=== PATIENT | male | born 1960 | race Caucasian/White ===

== ENCOUNTER 2017-07-25 16:04 | Observation (INO) | payer MEDICARE, OTHER ==
[2017-07-25 16:32] LABS: #Basophils 0.1 thou/uL (0.0-0.2); #Eosinphils 0.2 thou/uL (0.0-0.7); #Lymphocytes 2.2 thou/uL (1.20-3.40); #Monocytes 0.6 thou/uL (0.11-0.59); #Neutrophils 5.6 thou/uL (1.40-6.50); %Basophils 0.9 % (0.0-1.0); %Eosinophils 2.7 % (0.0-10.0); %Lymphocytes 25.4 % (21.0-51.0); %Monocytes 6.5 % (0.0-10.0); %Neutrophils 64.5 % (42.0-75.0); Hemoglobin 14.9 g/dL (14.0-18.0); Mean Corpuscular HGB CONC 34.2 g/dL (32.0-36.0); Mean Corpuscular Hemoglobin 30.2 pg (27.0-31.0); Mean Corpuscular Volume 88.2 fl (80.0-94.0); Platelet Count 324 thou/uL (130-400); RBC Distribution Width 12.1 % (11.5-14.5); Red Blood Cell (RBC) Count 4.92 mill/uL (4.70-6.10); White Blood Cell (WBC) Count 8.7 thou/uL (4.8-10.8)
[2017-07-25] MEDS ORDERED: Nitroglycerin 0.4 MG TAB (25 Tab Bottle) ONE (16:35)
[2017-07-25] MEDS ORDERED: Nitroglycerin 2% Ointment 1 INCH/1 GM Packet ONE (16:35)
[2017-07-25 16:37] LABS: INR-International Normal Ratio 1.1; PTT 30.9 SEC (22.9-36.1)
[2017-07-25 16:53] LABS: ALT (SGPT) 12 U/L (8-55); AST (SGOT) 17 U/L (5-34); Albumin 4.1 g/dL (3.5-5.0); Alkaline Phosphatase 143 U/L (40-150); Anion Gap 14 mmol/L (10-20); BUN (Urea Nitrogen) 15 mg/dL (8.4-25.7); Bilirubin, Total 0.6 mg/dL (0.2-1.2); CK (CPK) 69 U/L (30-200); Calc. Creatinine Clearance 0 mL/min (70-130); Calcium 9.5 mg/dL (7.8-10.44); Carbon Dioxide 27 mmol/L (22-29); Chloride 102 mmol/L (98-107); Estimated GFR-MDRD 55; Globulin 3.8 g/dL (2.4-3.5); Glucose 145 mg/dL (70-105); Potassium 3.5 mmol/L (3.5-5.1); Protein, Total 7.9 g/dL (6.0-8.3); Sodium 139 mmol/L (136-145)
[2017-07-25 16:55] LABS: CKMB 1.7 ng/mL (0-6.6); Troponin I 0.105 ng/mL (< 0.028)
--- NOTE | 2017-07-25 17:14 | CT ---
CT BRAIN WITHOUT CONTRAST: History: Slurred speech. Comparison: 2012 FINDINGS: There are extensive periventricular and deep white matter microangiopathic change, which has progress ed since the comparison examination. Innumerable lacunar infarcts. No acute hemorrhage. No midline shift of mass effect. Mastoids are clear. IMPRESSION: Extensive white matter changes, worsening from the comparison examination. Given the marked progressi on, an underlying small volume of acute component cannot be entirely excluded. MRI recommended if cli nically warranted. POS: [facility]
--- NOTE | 2017-07-25 18:39 | RAD ---
CHEST ONE VIEW: History: Slurred speech, chest pain. Comparison: 07-30-16 FINDINGS: Heart size is enlarged. Old left sided rib fractures. Old left clavicular fracture. No acute focal ai rspace consolidation, pneumothorax, or effusion. IMPRESSION: 1. Cardiomegaly. 2. Old left sided rib fractures. POS: [facility]
[2017-07-25] MEDS ORDERED: hydrALAZINE 20 MG/ML VIAL ONE (18:52)
[2017-07-25] MEDS ORDERED: Guaifenesin DM 100-10/5 ML UDCUP PO PRN (19:07)
[2017-07-25] MEDS ORDERED: Lisinopril/Hydrochlorothiazide 20 mg/12.5 mg Tablet PO SCH (19:30)
[2017-07-25 20:16] LABS: HBCM Index 0.06 S/CO (0-0.79); HBSAg Index 0.16 S/CO (0-0.99); HIV (1/2) Antibody/Antigen Non-Reactive (NonReactive); Hep A IgM AB Non-Reactive (NonReactive); Hep A IgM S/CO 0.11 S/CO (0-0.79); Hep B Surf Ag Non-Reactive S/CO (NonReactive); Hep C IgG Ab Non-Reactive (NonReactive); Hep C Index 0.17 S/CO (0-0.79); Hepatitis B Core IGM Abs Non-Reactive (NonReactive)
[2017-07-25 20:31] LABS: Bilirubin Negative (Negative); Blood, Urine Negative (Negative); Clarity CLEAR (Clear); Glucose, Urine (Dipstick) Negative (Negative); Leukocyte Negative (Negative); Nitrite Negative (Negative); Protein, Urine (Dipstick) 30 mg/dL (Neg-Trace); pH, Urine 6.5 (5.0-9.0)
[2017-07-25 20:33] LABS: Bacteria/HPF None Seen HPF (None Seen); Pathc Cast-AUWi Flag 1.74 (0-2.49); RBC/HPF 0-3 HPF (0-3); Squamous Epithelial 0-3 HPF (0-3); WBC/HPF 0-3 HPF (0-3)
[2017-07-25] MEDS: Famotidine 20 MG TAB PO SCH (20:36)
[2017-07-25] MEDS: Acetaminophen 325 MG TAB PO PRN (20:36)
[2017-07-25 20:46] LABS: Hyaline Casts/LPF 4-6 HYALINE CAST LPF (0-3 Hyaline)
[2017-07-25] MEDS ORDERED: Atorvastatin Calcium 20 MG TAB PO SCH (21:00)
--- NOTE | 2017-07-25 23:45 | HP ---
REASON FOR ADMISSION: TIA/CVA. HISTORY OF PRESENT ILLNESS: Patient gives history of having trouble speaking for last 2 months or so. He has trouble articulating, but here in the ER, patient is fluently speaking. He states that this is not his voice. He also feels like he has heaviness in his chest off and on, but none at present. No complaints of shortness of breath, palpitation, PND, or orthopnea. His friend saw him this afternoon and told him to come to the emergency room. No prior history of stroke. He has had a CT brain done, which could not r/o stroke. Patient states he has history of heart failure and is not on any medications now for last one year. Patient admits to using crack cocaine on Wednesday. He also uses marijuana regularly and drinks two beers. PAST MEDICAL AND SURGICAL HISTORY: History of CHF, likely diastolic, hypertension, sleep apnea, gout, tonsillectomy. Stress test done in 12/2013 showed no infarct or ischemia, EF was 58% on the stress test. Echo done in 2013 in December showed EF of 50%-55%. CURRENT MEDICATIONS: None. ALLERGIES: No known drug allergies. PERSONAL HISTORY: He uses cocaine, marijuana, and drinks 2 beers per day. Patient is on disability for heart failure. FAMILY HISTORY: Multiple family members have GI malignancy. Heart disease also runs in the family. CODE STATUS: FULL. Power of energy attorney is his daughter. REVIEW OF SYSTEMS: The following complete review of systems was negative, unless otherwise mentioned in the HPI or below: Constitutional: Weight loss or gain, ability to conduct usual activities. Skin: Rash, itching. Eyes: Double vision, pain. ENT/Mouth: Nose bleeding, neck stiffness, pain, tenderness. Cardiovascular: Palpitations, dyspnea on exertion, orthopnea. Respiratory: Shortness of breath, wheezing, cough, hemoptysis, fever, or night sweats. Gastrointestinal: Poor appetite, abdominal pain, heartburn, nausea, vomiting, constipation, or diarrhea. Genitourinary: Urgency, frequency, dysuria, nocturia. Musculoskeletal: Pain, swelling. Neurologic/Psychiatric: Anxiety, depression. Allergy/Immunologic: Skin rash, bleeding tendency. PHYSICAL EXAMINATION: GENERAL: Patient is a 57-year-old male who is currently not in any acute distress. VITAL SIGNS: Blood pressure on arrival was 219/138, pulse 93 per minute, respiratory rate 20 per minute, temperature 99.9 degrees Fahrenheit, saturating 93% on room air. NECK: Supple. No elevated JVD. HEENT: Eyes, extraocular muscles intact. Pupils reacting to light. Oral cavity mucous membranes are moist. No exudates or congestion. CARDIOVASCULAR SYSTEM: S1, S2 heard. Regular rhythm. RESPIRATORY SYSTEM: Air entry 1+ bilateral. Scattered rhonchi plus no rales or wheezes. ABDOMEN: Soft. Bowel sounds heard. No tenderness, rigidity, or guarding. EXTREMITIES: 1+ peripheral edema, no calf tenderness. VASCULAR SYSTEM: Peripheral pulses 1+ bilateral. No ischemic ulcerations or gangrene. CENTRAL NERVOUS SYSTEM: No gross focal deficits seen. Patient is alert, awake , and oriented well. PSYCHIATRIC: Patient's mood is euthymic. No hallucinations or delusions. LABORATORY DATA AND X-RAY FINDINGS: Chest x-ray done shows old left-sided rib fractures that is cardiomegaly. CT brain shows extensive white matter microangiopathic change, which is worse when compared to prior CAT scan done in 2012. Acute infarct could not be excluded due to marked progression of white matter ischemic changes. EKG done shows normal sinus rhythm at 95 beats per minute. There are signs of mild LVH. White count of 8, H&H 14 and 43, platelet count 324 with 64% neutrophils, MCV is 88. PT, INR, PTT within normal limits. BUN 15, creatinine 1.3, glucose 145, CK-MB 1.7, troponin I 0.10. Albumin is 4.1. CLINICAL IMPRESSION AND PLAN: Patient will be under observation on stroke unit for possible transient ischemic attack. He states he has symptoms of trouble speaking from last 2 months or so. This was noticed by his friend who brought him here. He also had a temperature of 99 in the ER with blood pressures of 219 /138 with hypertensive crisis on admission. Patient is not taking any medications from last 1 year or so. He will be placed on lisinopril 10 mg twice daily, Procardia 30 mg daily. We will also obtain urinalysis. His chest x-ray does not show any acute infiltrate. Urine drug screen will be obtained to confirm his cocaine and marijuana abuse and see if he uses any other drugs. He states he is on disability and is not working at present due to heart failure. Echo with 2D Doppler for LV function and MRI brain to better delineate structures, which are not clear on the CT scan. We will consult stroke team and Neurology as well. Patient has likely demand ischemia with troponin of 0.1. MTDD
[2017-07-26] MEDS: Acetaminophen 325 MG TAB PO PRN (02:34)
[2017-07-26 05:09] LABS: Anion Gap 12 mmol/L (10-20); BUN (Urea Nitrogen) 18 mg/dL (8.4-25.7); Calc. Creatinine Clearance 108 mL/min (70-130); Calcium 8.9 mg/dL (7.8-10.44); Carbon Dioxide 27 mmol/L (22-29); Cardiac Risk 3.8 (Less than 4.5); Chloride 103 mmol/L (98-107); Cholesterol 151 mg/dl (< 200 Desired); Estimated GFR-MDRD 61; Glucose 87 mg/dL (70-105); HDL Cholesterol 40 mg/dL (>60 Neg Risk); LDL Cholesterol, Calculated 98 mg/dL; Potassium 3.3 mmol/L (3.5-5.1); Sodium 139 mmol/L (136-145); Triglycerides 66 mg/dL (Less than 150)
[2017-07-26 05:14] LABS: #Basophils 0.1 thou/uL (0.0-0.2); #Eosinphils 0.3 thou/uL (0.0-0.7); #Lymphocytes 1.6 thou/uL (1.20-3.40); #Monocytes 0.6 thou/uL (0.11-0.59); #Neutrophils 5.4 thou/uL (1.40-6.50); %Basophils 0.7 % (0.0-1.0); %Eosinophils 3.5 % (0.0-10.0); %Monocytes 7.5 % (0.0-10.0); %Neutrophils 68.4 % (42.0-75.0); Hemoglobin 12.4 g/dL (14.0-18.0); Mean Corpuscular HGB CONC 32.9 g/dL (32.0-36.0); Mean Corpuscular Volume 88.1 fl (80.0-94.0); Mean Platelet Volume 7.3 fL (7.4-10.4); Platelet Count 294 thou/uL (130-400); RBC Distribution Width 12.1 % (11.5-14.5); Red Blood Cell (RBC) Count 4.29 mill/uL (4.70-6.10); White Blood Cell (WBC) Count 7.9 thou/uL (4.8-10.8)
[2017-07-26] MEDS ORDERED: Potassium Chloride 20 MEQ TAB PO SCH (07:45)
--- NOTE | 2017-07-26 07:56 | ULT ---
CAROTID ARTERIAL DOPPLER ULTRASOUND: DATE: 07/26/17. COMPARISON: None. HISTORY: Slurred speech. TECHNIQUE: Multiplanar, gordillo scale sonographic imaging of the arterial structures of the neck obtained with colo r and spectral analysis. FINDINGS: Antegrade blood flow and normal arterial waveforms are documented within the carotid and vertebral sy stem bilaterally. There is tortuosity of the proximal left internal carotid artery. VESSEL PSV (CM/S) EDV(CM/S) Right CCA 59 14 Right ICA 60 22 Right ECA 53 9 Left CCA 56 12 Left ICA 50 17 Left ECA 58 10 ICA/CCA ratio is 1.0 on the right and 0.9 on the left. IMPRESSION: No hemodynamically significant stenosis on the basis of sonographic velocity criteria. POS: [facility]
[2017-07-26] MEDS: Famotidine 20 MG TAB PO SCH (08:06)
[2017-07-26 08:19] LABS: Troponin I 0.091 ng/mL (< 0.028)
[2017-07-26] MEDS ORDERED: Enoxaparin Sodium 40 MG/0.4 ML SYRINGE SC SCH (09:00)
[2017-07-26] MEDS ORDERED: Lisinopril/Hydrochlorothiazide 10 mg/12.5 mg Tablet PO SCH (09:00)
[2017-07-26] MEDS ORDERED: NIFEdipine XL 30 MG TAB PO SCH (09:00)
[2017-07-26] MEDS ORDERED: Aspirin 325 mg Enteric Coated Tablet PO SCH (09:00)
--- NOTE | 2017-07-26 10:01 | MRI ---
MRI BRAIN WITHOUT CONTRAST: HISTORY: Slurred speech. COMPARISON: CT brain prior day. FINDINGS: There are no abnormalities of diffusion restriction images to suggest acute infarction. This is conf irmed of the ADC map. Extensive microvascular ischemic changes. The [place] of Vu vessels are enlarged indicating chron ic hypertension. There are extensive foci of susceptibility throughout the basal ganglia. There are also a few scattered cortical areas of susceptibility as well as areas of susceptibility wi thin the cerebellum. IMPRESSION: 1. No acute infarction. 2. Markedly advanced periventricular and subcortical white matter changes. 3. Extensive foci of susceptibility of the basal ganglia bilaterally as well as scattered throughout the cerebrum and posterior fossa. Given the dilated [place] of Vu vessels, this most likely repr esents small foci of hemorrhage from hypertensive microhemorrhages and less likely amyloid angiopathy . POS: [facility]
[2017-07-26 10:05] LABS: Amphetamine Not Detected (NotDetected); Barbiturates Screen Not Detected (NotDetected); Benzodiazepine Screen Not Detected (NotDetected); Cocaine Metabolite Screen Detected (NotDetected); Medtox Reader # READER 4; Methadone Not Detected (NotDetected); Methamphetamine Not Detected (NotDetected); Opiate Screen Not Detected (NotDetected); Oxycodone Screen Not Detected (NotDetected); Phencyclidine (PCP) Not Detected (NotDetected); THC/Cannabinoid Screen Detected (NotDetected); Tricyclic Screen Not Detected (NotDetected)
[2017-07-26 10:06] LABS: Medtox Control Line Valid? VALID (VALID)
--- NOTE | 2017-07-26 11:10 | PDOC.PN ---
- Subjective Encounter Start Date: 07/26/17 Encounter Start Time: 11:08 Still has some difficulty with speech. Cannot articulate the words fluidly. No difficulty with thought or speech. No other deficits. - Objective Vital Signs & Weight: Vital Signs (12 hours) Temp Pulse Resp BP BP Pulse Ox 07/26/17 08:06 97.2 F L 64 16 175/108 H 07/26/17 08:05 64 175/108 H 07/26/17 08:00 97.2 F L 64 16 175/108 H 97 07/26/17 04:00 97.8 F 66 18 139/86 94 L 07/25/17 23:49 97.8 F 73 18 134/81 95 I&O: 07/25/17 07/26/17 07/27/17 06:59 06:59 06:59 Intake Total 240 Output Total 375 Balance -375 240 Result Diagrams: 07/26/17 04:05 07/26/17 04:05 Phys Exam - Physical Examination Constitutional: NAD HEENT: PERRLA, oral pharynx no lesions Neck: no nodes, no JVD Respiratory: no wheezing, no rales, no rhonchi, clear to auscultation bilateral Cardiovascular: RRR, no significant murmur Gastrointestinal: soft, non-tender, no distention, positive bowel sounds Musculoskeletal: no edema Mild dysphasia, but completely understandable and appropriate in speech. Psychiatric: normal affect Deviation from normal: Does become tearful recounting some spiritual encounters Skin: no rash Dx/Plan (1) Dysphasia Code(s): R47.02 - DYSPHASIA Status: Acute Plan: Patient has significant, chronic hypertensive encephalomalacia likely related to 20 years of cocaine abuse. This is a relatively new issue for him, but there is no acute findings on the MRI. Doubt pure hypertensive encephalopathy as the pressure has improved somewhat. He was here one year ago with severe hypertension and has not been on meds since that time. Neuro consult pending. Suspect there is not much to be done other than cessation of the drug abuse and compliance with antihypertensive medications and outpatient follow up. (2) Cocaine abuse Code(s): F14.10 - COCAINE ABUSE, UNCOMPLICATED Status: Acute Plan: 20 year history of using cocaine every time he had enough money to buy it. Counseled regarding the ill-effects it is having on his brain and heart. Encouraged cessation. (3) Marijuana abuse Code(s): F12.10 - CANNABIS ABUSE, UNCOMPLICATED Status: Acute (4) Cerebral atrophy Code(s): G31.9 - DEGENERATIVE DISEASE OF NERVOUS SYSTEM, UNSPECIFIED Status: Acute Plan: Appears to have multiple micohemorrhagic events causing chronic degeneration of the brain. (5) Essential hypertension Code(s): I10 - ESSENTIAL (PRIMARY) HYPERTENSION Status: Acute Plan: History of non-compliance with medications. Back on ACEI/Diuretic and CCB. - Plan * Above. * Patient would like to go home today * If he can get eval'd by Neuro and his BP is reasonable, may be able to DC with anti-hypertensives and outpatient follow up.
[2017-07-26] MEDS ORDERED: Labetalol HCl 100 MG/20 ML VIAL SLOW IVP PRN (11:56)
[2017-07-26] MEDS ORDERED: hydrALAZINE 25 MG TAB PO SCH ×2 (12:00→21:00)
[2017-07-26 15:52] VITALS: BP 161/98; TEMP 97.8
--- NOTE | 2017-07-27 08:09 | CON ---
DATE OF CONSULTATION: 07/26/2017 REASON FOR CONSULTATION: Slurred speech. HISTORY OF PRESENT ILLNESS: Mr. Wallace is a pleasant 57-year-old male who has been consulte d for evaluation of slurred speech. The patient reports that over the past 2 months, he has been hav ing increasing difficulty with his speech. He notes speech has been slurred. He also has noted diff iculty with balance and walking. He did fell a few days ago and required help to stand up. He denie d having any headache, vision changes, chest pain, palpitation, nausea, vomiting, numbness or tinglin g sensation, or weakness in upper or lower extremities. He reports that he has a history of congesti ve heart failure and high blood pressure; however, he has been off all medications for the past one y ear. He blames this on not being able to purchase any medications due to him being on a fixed income . He does report of marijuana and crack cocaine use. PAST MEDICAL HISTORY: Significant for hypertension, congestive heart failure, sleep apnea, gout, ton sillectomy. PAST SURGICAL HISTORY: None significant. SOCIAL HISTORY: He reports of cocaine and marijuana use. He also drinks alcohol with two beers on d aily basis. He is currently on disability. FAMILY HISTORY: Significant for family members with GI malignancy and heart disease. CURRENT MEDICATIONS: Please review MAR. ALLERGIES: No known drug allergies. REVIEW OF SYSTEMS: As mentioned above in HPI, negative. PHYSICAL EXAMINATION: VITAL SIGNS: Blood pressure 161/98, pulse of 80, temperature of 97.8, respirations of 16, O2 sats of 94% on room air. GENERAL: A well-developed, well-nourished male in no apparent distress. RESPIRATORY: Clear to auscultation bilaterally. CARDIOVASCULAR: Regular rate and rhythm. NEUROLOGIC: As this patient is awake, alert, oriented x3. Speech and language: Mildly dysarthric s peech noted. Cranial nerves: Pupils are 3 mm and reactive. Visual frank are intact. External mus cles are intact. No nystagmus is noted. Face is symmetric. Tongue and uvula midline. Motor exam s howed normal tone and bulk with a 5/5 strength in both upper and lower extremities. Sensory: Sensat ion is intact and symmetric. Deep tendon reflexes: 2+ reflexes with upper and lower extremities. B abinski: Plantar responses flexion bilaterally. Coordination intact to [id number]-[id number] and finge r tapping bilaterally. Gait and Romberg are normal. LABORATORY DATA: Reviewed, which included CBC, CMP, lipid profile, urinalysis, urine drug screen, an d hepatitis panel, which is significant for hemoglobin 12.4, hematocrit 37.8. Potassium of 3.3. Tro ponin of 0.091. Urine drug screen was positive for cocaine and marijuana, otherwise negative. IMAGING STUDIES: MRI brain without contrast was reviewed, which showed no acute intracranial abnorma lity. IMPRESSION: 1. Hypertensive urgency. 2. Dysarthria. 3. Polysubstance abuse. ASSESSMENT AND PLAN: Mr. Wallace is a pleasant 57-year-old male with a history of hypertensi on, congestive heart failure who is noncompliant and has a history of polysubstance abuse who present ed with 2-month history of dysarthria. His MRI is negative for any acute intracranial finding. He d oes have multiple micro hemorrhages in the basal ganglia. This is likely due to the poorly controlle d blood pressure. At this time, I had a long discussion with the patient and explained that he needs to be compliant with his medication. I also explained that he needs to discontinue use of all illic it drug use, including cocaine and marijuana. I also advised him to stop drinking alcohol. He needs to control his diet and exercise on a daily basis. He needs to be started on antihypertensive medic ation with a goal blood pressure of 120/80. Continue supportive care. No further neurological susan p needed from my standpoint.
--- NOTE | 2017-07-27 12:25 | DIS ---
DATE OF ADMISSION: 07/25/2017 DATE OF DISCHARGE: 07/26/2017 DISCHARGE DIAGNOSES: 1. Hypertensive urgency. 2. Substance abuse. 3. Dysarthria. HISTORY: This patient is a 57-year-old male with a longstanding history of drug abuse including marijuana and frequent crack cocaine abuse. Patient has been using this for over 20 years. He presented to the emergency department with trouble speaking for a couple of months. I also reported some heaviness in his chest, but no shortness of breath or palpitations. He came to the emergency room specifically because he has had friends tell him that he thought he might be having a stroke because of his dysarthria. His initial exam was notable for a blood pressure of 219/138 without substantial neurological deficits noted at that time. Remainder of exam was generally unremarkable. CT of the head showed extensive white matter microangiopathic changes, which had worsened significantly from 2011. EKG showed some signs of LVH. Labs were largely unremarkable. HOSPITAL COURSE: The patient was placed in the stroke unit for observation for possible transient ischemic attack or hypertensive urgency. The patient indicated he had not been taking his medications for about the last year. He was placed back on lisinopril and Procardia. Urine drug screen confirmed the cocaine and marijuana as the patient had indicated would be the case. The patient underwent an MRI of the brain, which showed markedly advanced periventricular and subcortical white matter changes with extensive foci of susceptibility of the basal ganglia bilaterally and scattered throughout the cerebrum and posterior fossa with some dilatation of the [place] of Vu vessels with hypertensive microhemorrhages. Patient's carotid Doppler showed no hemodynamically significant stenosis. Echocardiogram reveals mildly depressed left ventricular function with an EF of 45-50 with moderate mitral regurgitation and mildly dilated left atrium. The patient's blood pressure did improve down to 161/98. He was seen by Neurology, a neurologist felt that this was due to the hypertensive urgency. He had a long discussion with the patient regarding his compliance with the medications and the use of alcohol and drugs. did not feel any further workup was indicated and that the patient was stable for discharge to home. The patient was subsequently discharged. He is to continue with atorvastatin 20 mg p.o. at bedtime, hydralazine 25 mg p.o. b.i.d. , lisinopril/hydrochlorothiazide 1 p.o. daily, Procardia-XL 30 mg p.o. daily. He is to follow up with his primary care physician. He is to have a regular diet and his activity level is as tolerated. Again, the patient was encouraged to follow up with his PCP to oversee further blood pressure management and assistance with his cessation. EVAN
== END 2017-07-26 20:05 | disposition home or self-care (01) ==
LOC: ERS 16:04 → 2SE 19:29
PROVIDERS: ADMIT Internal Medicine; ATTEND Internal Medicine
DX: R47.1 Dysarthria and anarthria (principal); R47.02 Dysphasia; I16.0 Hypertensive urgency; I11.0 Hypertensive heart disease with heart failure; I50.9 Heart failure, unspecified; G47.30 Sleep apnea, unspecified; M10.9 Gout, unspecified; G93.89 Other specified disorders of brain; F14.10 Cocaine abuse, uncomplicated; F12.10 Cannabis abuse, uncomplicated; G31.9 Degenerative disease of nervous system, unspecified; Z91.14 Patient's other noncompliance with medication regimen
CPT/HCPCS: 70450; 70551; 71045; 80048; 80053; 80061; 80074; 80306; 81001; 82550; 82553; 84484 ×2; 85025 ×2; 85610; 85730; 87040; 87086; 87389; 93005; 93306; 93880; 96372; 96374; 96375; 97139 ×3; 97530; 99285; G0378; G8978; G8979; G8987; G8988; 36415; G9162-GN-CJ; G9163-GN-CI; J0360; J1650

== ENCOUNTER 2018-03-11 10:56 | Emergency (ER) | payer MEDICARE ==
[2018-03-11] MEDS ORDERED: Adacel (T-DAP) 0.5 ML SYRINGE ONE (12:09)
== END 2018-03-11 12:05 | disposition home or self-care (01) ==
LOC: ERS 10:56
DX: S00.33XA Contusion of nose, initial encounter (principal); S80.211A Abrasion, right knee, initial encounter; F17.210 Nicotine dependence, cigarettes, uncomplicated; I11.0 Hypertensive heart disease with heart failure; I50.9 Heart failure, unspecified; G47.30 Sleep apnea, unspecified; M10.9 Gout, unspecified; F32.9 Major depressive disorder, single episode, unspecified; Z86.73 Personal history of transient ischemic attack (TIA), and cerebral infarction without residual deficits; Z79.899 Other long term (current) drug therapy; W19.XXXA Unspecified fall, initial encounter
CPT/HCPCS: 90471; 90715; 93005; 94760

== ENCOUNTER 2018-03-19 14:32 | Observation (INO) | payer MEDICARE ==
--- NOTE | 2018-03-19 15:34 | RAD ---
PA AND LATERAL CHEST: Date: 03/19/18 HISTORY: Cough and congestion. COMPARISON: 02/02/13 study. FINDINGS: Heart size is enlarged. There are atherosclerotic changes of the aorta. Lungs are clear of infiltrate s. There are arthritic changes of the spine. IMPRESSION: Cardiomegaly. No acute findings. POS: [facility]
[2018-03-19 17:19] LABS: #Basophils 0.1 thou/uL (0.0-0.2); #Eosinphils 0.4 thou/uL (0.0-0.7); #Lymphocytes 1.6 thou/uL (1.20-3.40); #Monocytes 0.6 thou/uL (0.11-0.59); #Neutrophils 3.9 thou/uL (1.40-6.50); %Eosinophils 5.5 % (0.0-10.0); %Lymphocytes 24.7 % (21.0-51.0); %Monocytes 9.2 % (0.0-10.0); %Neutrophils 59.6 % (42.0-75.0); Mean Corpuscular HGB CONC 32.9 g/dL (32.0-36.0); Mean Corpuscular Hemoglobin 29.5 pg (27.0-31.0); Mean Corpuscular Volume 89.6 fL (78.0-98.0); Mean Platelet Volume 7.2 fL (7.4-10.4); Platelet Count 287 thou/uL (130-400); RBC Distribution Width 12.3 % (11.5-14.5); White Blood Cell (WBC) Count 6.6 thou/uL (4.8-10.8)
[2018-03-19 17:41] LABS: ALT (SGPT) 14 U/L (8-55); AST (SGOT) 15 U/L (5-34); Albumin 3.9 g/dL (3.5-5.0); Alkaline Phosphatase 125 U/L (40-150); Anion Gap 11 mmol/L (10-20); BUN (Urea Nitrogen) 19 mg/dL (8.4-25.7); Bilirubin, Total 0.5 mg/dL (0.2-1.2); Calc. Creatinine Clearance 0 mL/min (70-130); Calcium 9.5 mg/dL (7.8-10.44); Carbon Dioxide 27 mmol/L (22-29); Chloride 104 mmol/L (98-107); Estimated GFR-MDRD 63; Globulin 3.4 g/dL (2.4-3.5); Glucose 146 mg/dL (70-105); Potassium 3.9 mmol/L (3.5-5.1); Protein, Total 7.3 g/dL (6.0-8.3); Sodium 138 mmol/L (136-145)
[2018-03-19 18:02] LABS: CKMB 1.8 ng/mL (0-6.6)
[2018-03-19] MEDS ORDERED: Aspirin Chewable 81 MG TAB ONE (20:10)
[2018-03-19 20:34] LABS: Troponin I 0.062 ng/mL (< 0.028)
[2018-03-19] MEDS ORDERED: cloNIDine 0.1 MG TAB PO PRN (20:48)
[2018-03-19] MEDS ORDERED: Acetaminophen 325 MG TAB PO PRN (20:51)
[2018-03-19] MEDS ORDERED: Ondansetron ODT 4 MG TAB PO PRN (20:51)
[2018-03-19] MEDS ORDERED: Ondansetron PF 4 MG/2 ML Vial IVP PRN (20:51)
[2018-03-19 21:47] VITALS: BMI 35.8
--- NOTE | 2018-03-19 23:27 | HP ---
PRIMARY CARE PHYSICIAN: Out of town physician. CODE STATUS: Full code. TIME OF EVALUATION: 8:15 p.m. CHIEF COMPLAINT: Shortness of breath. HISTORY OF PRESENT ILLNESS: This is a 57-year-old male patient. The patient has a past medical history of hypertension and also congestive heart failure, came to the hospital after having shortness of breath with productive cough for three days and congestion. The patient reported that he had been in [facility], has gone home for the past week and has no regular medications, so he was noncompliant. He was found to be in hypertensive urgency/emergency. The patient has some mild elevation in troponin, unclear if this is new or old. Symptoms were severe as reported by the patient, started insidiously in the past three days and has been gradually getting worse. REVIEW OF SYSTEMS: CONSTITUTIONAL: No fever, chills, or generalized weakness. RESPIRATORY: The patient has shortness of breath. No cough. Some sputum production. CARDIOVASCULAR: No chest pain or palpitations. GASTROINTESTINAL: No nausea. No vomiting, diarrhea, or abdominal pain. FLIGHT ATTENDANT/INFLIGHT SUPERVISOR: No dizziness, headache, or feeling lightheaded. GENITOURINARY: No burning on urination. EXTREMITIES: Mild bilateral leg swelling. All other systems were reviewed and negative except for the findings mentioned above. ALLERGIES: NO KNOWN DRUG ALLERGIES. PMHx: reported in HPI. Family history: Reiewed and no contributory to current presentation REPORTED MEDICATIONS: None being updated. PHYSICAL EXAMINATION: VITAL SIGNS: On presentation, blood pressure 185/109 with heart rate 88, respiratory rate 16, temperature 98.1, oxygen saturation was 96% on room air. GENERAL APPEARANCE: The patient is alert, oriented, not in acute distress. HEENT: Eyes; normal conjunctivae. Moist oral mucosa. Anicteric. No JVD. RESPIRATORY: Bilateral air entry. No rales. No wheezes. Symmetric expansion. CARDIOVASCULAR: Normal rate, regular rhythm. No murmurs. No gallop. Bilateral leg edema. ABDOMEN: Soft. Normal bowel sounds. MUSCULOSKELETAL: Baseline range of motion and strength. No tenderness. SKIN: Warm, intact. No pallor. No rash. No redness. Peripheral pulses are present. Capillary refill seems to be intact. NEUROLOGIC: No evidence of any new focal weakness. Baseline speech. Cranial nerves seems to be intact. PSYCH: The patient is in good mood. No anxiety. Optimal judgment. IMAGING STUDIES: EKG was reviewed. The patient has normal sinus rhythm with occasional PVCs. Ventricular rate 88, MA interval 148, QRS 104, QT corrected 175, prolonged QT. Chest x-ray was reviewed. The patient has cardiomegaly. No acute findings. LABORATORY DATA: Labs were reviewed. The patient has white count 6.6, hemoglobin 13, MCV 89.6, platelet count 187. Chemistry; sodium 138, potassium 3.9, chloride 104, carbon dioxide 27, anion gap 11, BUN 19, creatinine 1.19, GFR 63, glucose 146, calcium 9.5, total bilirubin 0.5. LFTs were normal. Troponin 0.046 and second one 0.062 with beta natriuretic peptide 192. ASSESSMENT AND PLAN: The patient will be placed in the hospital with following medical problems: 1. Hypertensive urgency/emergency. The patient had no medication for the past few days. Symptoms have been getting worse for the past three days. The patient has mildly leak of troponin and mild elevation of beta natriuretic peptide. We will control the blood pressure, we will trend troponins, will treat accordingly. 2. Hyperglycemia with blood sugar 146 likely due to underlying acute physical distress or glucose intolerance. We will monitor, we will adjust medications. 3. Obesity. The patient advised to lose weight. 4. Underlying congestive heart failure. The patient was noncompliant with medication. We will reconcile medications. We will control high blood pressure , will treat accordingly. 5. Deep venous thrombosis prophylaxis. Job ID: [id number] [facility]ENTERJuan
[2018-03-19 23:38] LABS: Troponin I 0.059 ng/mL (< 0.028)
[2018-03-20 04:56] LABS: #Basophils 0.1 thou/uL (0.0-0.2); #Eosinphils 0.6 thou/uL (0.0-0.7); #Lymphocytes 1.5 thou/uL (1.20-3.40); #Monocytes 0.6 thou/uL (0.11-0.59); #Neutrophils 4.1 thou/uL (1.40-6.50); %Basophils 0.8 % (0.0-1.0); %Eosinophils 8.1 % (0.0-10.0); %Lymphocytes 22.4 % (21.0-51.0); %Monocytes 9.2 % (0.0-10.0); %Neutrophils 59.6 % (42.0-75.0); Hemoglobin 12.8 g/dL (14.0-18.0); Mean Corpuscular HGB CONC 32.7 g/dL (32.0-36.0); Mean Corpuscular Hemoglobin 29.4 pg (27.0-31.0); Mean Platelet Volume 7.4 fL (7.4-10.4); Platelet Count 281 thou/uL (130-400); RBC Distribution Width 12.3 % (11.5-14.5); Red Blood Cell (RBC) Count 4.34 mill/uL (4.70-6.10); White Blood Cell (WBC) Count 6.9 thou/uL (4.8-10.8)
[2018-03-20 05:20] LABS: Anion Gap 14 mmol/L (10-20); BUN (Urea Nitrogen) 24 mg/dL (8.4-25.7); Calc. Creatinine Clearance 126 mL/min (70-130); Calcium 9.2 mg/dL (7.8-10.44); Carbon Dioxide 23 mmol/L (22-29); Chloride 105 mmol/L (98-107); Estimated GFR-MDRD 74; Glucose 167 mg/dL (70-105); Potassium 3.8 mmol/L (3.5-5.1); Sodium 138 mmol/L (136-145)
[2018-03-20] MEDS ORDERED: Lisinopril/Hydrochlorothiazide 10 mg/12.5 mg Tablet PO SCH (09:00)
[2018-03-20] MEDS ORDERED: hydrALAZINE 25 MG TAB PO SCH (09:00)
[2018-03-20] MEDS ORDERED: NIFEdipine XL 30 MG TAB PO SCH (09:00)
--- NOTE | 2018-03-20 10:47 | PDOC.PN ---
- Subjective Encounter Start Date: 03/20/18 Encounter Start Time: 10:46 Mr. Wallace was seen today in follow-up of hypertensive Urgency. He does not have any new complaints. - Objective Resuscitation Status - Order Detail: 03/19/18 20:51 Resuscitation Status Routine Resuscitation Status: FULL: Full Resuscitation MAR Reviewed: Yes Vital Signs & Weight: Vital Signs (12 hours) Temp Pulse Resp BP BP Pulse Ox 03/20/18 09:48 67 151/85 H 03/20/18 08:32 67 03/20/18 08:31 67 191/107 H 03/20/18 07:53 97.5 F L 67 20 191/107 H 96 03/20/18 03:26 98.3 F 67 15 169/110 H 96 03/19/18 23:36 98.3 F 69 16 165/95 H 94 L Weight Weight 249 lb 12.8 oz I&O: 03/19/18 03/20/18 03/21/18 06:59 06:59 06:59 Intake Total 750 Output Total 275 Balance 750 -275 Result Diagrams: 03/20/18 04:39 03/20/18 04:39 Phys Exam - Physical Examination HEENT: PERRLA Respiratory: no wheezing, no rales, no rhonchi, clear to auscultation bilateral Cardiovascular: RRR, no significant murmur, no rub Gastrointestinal: soft, non-tender, no distention, positive bowel sounds Musculoskeletal: no edema Dx/Plan (1) Hypertensive urgency Code(s): I16.0 - HYPERTENSIVE URGENCY Status: Acute (2) HTN (hypertension) Code(s): I10 - ESSENTIAL (PRIMARY) HYPERTENSION Status: Chronic (3) COPD (chronic obstructive pulmonary disease) Status: Suspected (4) Acute bronchitis Code(s): J20.9 - ACUTE BRONCHITIS, UNSPECIFIED Status: Acute - Plan * Hypertensive Urgency-resolved, after re-starting his home medications * Acute Bronchitis- Will discharge home on Omnicef, and Mucinex
[2018-03-20 12:27] VITALS: BP 116/109; TEMP 98.4
[2018-03-20] MEDS ORDERED: Atorvastatin Calcium 20 MG TAB PO SCH (21:00)
--- NOTE | 2018-03-20 21:19 | DIS ---
DATE OF ADMISSION: 03/19/2018 DATE OF DISCHARGE: 03/20/2018 DISCHARGE DIAGNOSES: 1. Hypertensive urgency. 2. Acute bronchitis. 3. Congestive heart failure, chronic systolic heart failure, which was compensated. DISCHARGE MEDICATIONS: Include: 1. Nifedipine XL 30 mg daily. 2. Lisinopril/hydrochlorothiazide 10/12.5 once daily. 3. Hydralazine 25 mg twice daily. 4. Mucinex 600 mg twice daily. 5. Omnicef 300 mg twice daily for 7 days. 6. Lipitor 20 mg at bedtime. CODE STATUS: Full code. ALLERGIES: NO KNOWN DRUG ALLERGIES. HOSPITAL COURSE: Mr. Wallace is a pleasant 57-year-old gentleman who was admitted to the hospital complaining of shortness of breath. He was evaluated in the ER and found to have an extremely elevated blood pressure of 191/101. Chest x-ray was clear and his initial troponins were just partially elevated. It was felt that he likely has hypertensive urgency. He admitted that he had been out of his antihypertensive medications for over a week. Once these were restarted, his blood pressure began to improve. I checked his blood pressure in the room and it was approximately 146/90 and one prior to that was 151/85. His symptoms have resolved and he will be discharged home. He will also be discharged home on Omnicef as well as Mucinex for possible mild bronchitis. The patient is to follow up with his primary care physician in 1 to 2 weeks and has been instructed on the need to be compliant with blood pressure medication. Job ID: [id number]
--- NOTE | 2018-03-26 19:31 | EKG ---
Test Reason : SOB Blood Pressure : / mmHG Vent. Rate : 088 BPM Atrial Rate : 088 BPM P-R Int : 148 ms QRS Dur : 104 ms QT Int : 394 ms P-R-T Axes : 044 -10 094 degrees QTc Int : 476 ms Sinus rhythm with occasional Premature ventricular complexes T wave inversion I, aVL, V5, V6 Prolonged QT Abnormal ECG No changes from 24-FEB-2017 Confirmed by MIKKI MOORE DO ([id number]), managing editor ALEXANDRU AVENDANO ([id number] on 03/26/2018 7:31:22 PM Referred By: [email or web address] Confirmed By:MIKKI MOORE DO
== END 2018-03-20 13:40 | disposition home or self-care (01) ==
LOC: ERS 14:32 → 2SW 19:43
PROVIDERS: ADMIT Hospitalist; ATTEND Hospitalist
DX: I16.0 Hypertensive urgency (principal); I11.0 Hypertensive heart disease with heart failure; I50.22 Chronic systolic (congestive) heart failure; J20.9 Acute bronchitis, unspecified; J44.0 Chronic obstructive pulmonary disease with (acute) lower respiratory infection; E66.9 Obesity, unspecified; Z68.35 Body mass index [BMI] 35.0-35.9, adult; Z91.14 Patient's other noncompliance with medication regimen; Z79.2 Long term (current) use of antibiotics; Z79.899 Other long term (current) drug therapy
CPT/HCPCS: 71046; 80048; 80053; 82553; 83880; 84484 ×2; 85025 ×2; 93005; 96374; 99285; G0378 ×2; 36415; J3490